=== PATIENT | female | born 2000 | race Caucasian/White ===

== ENCOUNTER 2020-03-18 16:58 | Emergency (ER) | payer MEDICAID ==
[2020-03-18 17:18] VITALS: BP 138/78
--- NOTE | 2020-03-18 17:30 | ER Document Report ---
HPI - HPI Time Seen by Provider: 03/18/20 17:15 Context: Patient is a 19-year-old female who presents emergency department with a chief complaint of tenderness to her left jain area. Patient states that she felt that there was an abscess in the area. She ended up popping the area and green pus came out. She states that the area is very tender. States that she had some numbness throughout the left side of her face, but the numbness went away after she popped the abscess. - ROS Systems Reviewed and Negative: Yes All other systems reviewed and negative - CONSTITUTIONAL Constitutional: DENIES: Fever, Chills - GASTROINTESTINAL Gastrointestinal: DENIES: Abdominal Pain, Nausea, Patient vomiting - DERM Skin Color: Normal Skin Problems: Pustule - left jain area Past Medical History - General Information source: Patient - Social History Smoking Status: Unknown if Ever Smoked Family History: Reviewed & Not Pertinent Vertical Provider Document - CONSTITUTIONAL Agree With Documented VS: Yes Exam Limitations: No Limitations General Appearance: No Apparent Distress - INFECTION CONTROL TRAVEL OUTSIDE OF THE [place] IN LAST 30 DAYS: No - HEENT HEENT: Atraumatic, Normocephalic, PERRLA - NECK Neck: Normal Inspection - RESPIRATORY Respiratory: No Respiratory Distress - CARDIOVASCULAR Cardiovascular: Regular Rate, Regular Rhythm - MUSCULOSKELETAL/EXTREMETIES Musculoskeletal/Extremeties: FROM - NEURO Level of Consciousness: Awake, Alert, Appropriate Motor/Sensory: No Motor Deficit, No Sensory Deficit - DERM Integumentary: Warm, Dry, Abscess - drained to left jain area Course - Re-evaluation Re-evalutation: 03/18/20 17:30 Patient will be started on clindamycin. 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 I have a low suspicion for necrotizing fasciitis. Follow-up precautions were given. Verbal discharge instructions were given to the patient. They verbalized understanding. They are stable for discharge. - Vital Signs Vital signs: Temp Pulse Resp BP Pulse Ox 98.3 F 82 20 138/78 H 99 03/18/20 17:17 03/18/20 17:17 03/18/20 17:17 03/18/20 17:17 03/18/20 17:17 Discharge - Discharge Clinical Impression: Cutaneous abscess of face Condition: Stable Disposition: HOME, SELF-CARE Instructions: Abscess ([facility]) Additional Instructions: You were seen today in the emergency department for an abscess to your face. Please take your antibiotics as prescribed. Follow-up with your injection molding process technician in regards to this visit. Prescriptions: Clindamycin HCl [Cleocin 150 mg Capsule] 300 mg PO Q6 7 Days #56 capsule Forms: Return to Work Referrals: OSVALDO HUI MD [NO LOCAL MD] - Follow up in 3-5 days
== END 2020-03-18 17:44 | disposition home or self-care (01) ==
LOC: ER 16:58
DX: L02.01 Cutaneous abscess of face (principal)
CPT/HCPCS: 99283